=== PATIENT | female | born 1985 | race Caucasian/White ===

== ENCOUNTER 2017-08-23 09:31 | Inpatient (IN) | payer OTHER ==
[2017-08-23 10:04] VITALS: BMI 24.3
--- NOTE | 2017-08-23 10:05 | HP ---
CIWA Score - CIWA Score Nausea/Vomitin-Mild Nausea/No Vomiting Muscle Tremors: 4-Moderate,w/Arms Extend Anxiety: 4-Mod. Anxious/Guarded Agitation: 1-Slight > Activity Paroxysmal Sweats: 1-Minimal Palms Moist Orientation: 1-Uncertain about Date Tacttile Disturbances: 1-Very Mild Itch/Numbness Auditory Disturbances: 2-Mild Harshness/Frighten Visual Disturbances: 1-Very Mild Sensitivity Headache: 2-Mild CIWA-Ar Total Score: 18 Admission ROS BHS - HPI Chief Complaint: I can't stop drinking on my own Allergies/Adverse Reactions: Allergies Allergy/AdvReac Type Severity Reaction Status Date / Time No Known Allergies Allergy Verified 08/23/17 09:59 History of Present Illness: 31 yo woman here for detox from alcohol - history of one previous detox in May with a week of rehab. States she relapsed a few weeks ago - went to [facility] last week but not admitted and then to [facility] yesterday who sent her here for detox. History of seizure in May. 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 Exam Limitations: Clinical Condition - Ebola screening Have you traveled outside of the country in the last 21 days: No Have you had contact with anyone from an Ebola affected area: No Do you have a fever: No - Review of Systems Constitutional: Loss of Appetite, Night Sweats, Changes in sleep EENT: reports: No Symptoms Reported Respiratory: reports: No Symptoms reported Cardiac: reports: No Symptoms Reported GI: reports: Poor Appetite : reports: Frequency Musculoskeletal: reports: Back Pain, Muscle Pain Integumentary: reports: No Symptoms Reported Neuro: reports: Headache, Tremors Endocrine: reports: No Symptoms Reported Hematology: reports: No Symptoms Reported Psychiatric: reports: Judgement Intact, Mood/Affect Appropiate, Anxious Other Systems: Reviewed and Negative Patient History - Patient Medical History Hx Anemia: No Hx Asthma: No Hx Chronic Obstructive Pulmonary Disease (COPD): No Hx Cancer: No Hx Cardiac Disorders: No Hx Congestive Heart Failure: No Hx Hypertension: No Hx Hypercholesterolemia: No Hx Pacemaker: No HX Cerebrovascular Accident: No Hx Seizures: Yes (may 2017) Hx Dementia: No Hx Diabetes: No Hx Gastrointestinal Disorders: No Hx Liver Disease: No Hx Genitourinary Disorders: No Hx Sexually Transmitted Disorders: No Hx Renal Disease (ESRD): No Hx Thyroid Disease: No Hx Human Immunodeficiency Virus (HIV): No Hx Hepatitis C: No Hx Depression: Yes (anxiety) Hx Suicide Attempt: No Hx Bipolar Disorder: No Hx Schizophrenia: No - Patient Surgical History Other Surgical History: tonsillectomy age 3 - PPD History Previous Implant?: Yes Documented Results: Negative w/o proof Implanted On Prior [facility] Admission?: No PPD to be Administered?: Yes - Reproductive History Patient is a Female of Child Bearing Age (11 -55 yrs old): Yes - Smoking Cessation Smoking history: Current every day smoker Have you smoked in the past 12 months: Yes Aproximately how many cigarettes per day: 2 Initiated information on smoking cessation: Yes 'Breaking Loose' booklet given: 08/23/17 (give on floor) - Substance & Tx. History Hx Alcohol Use: Yes Hx Substance Use: No Substance Use Type: Alcohol Hx Substance Use Treatment: Yes (detox may 2017) - Substances Abused Alcohol Route: Oral Frequency: Daily Amount used: 1-2 bottles wine, 3 shots vodka Age of first use: 16 Date of Last Use: 08/22/17 Family Disease History - Family Disease History Family Disease History: Other: Father (living, prostate problem), Mother (living ,[employer], thyroid), Sister (one - healthy) Admission Physical Exam BHS - Vital Signs Vital Signs: Vital Signs Period Temp Pulse Resp BP Sys/Rojas Pulse Ox Last 24 Hr 96 F 87 20 127/73 - Physical General Appearance: Yes: Nourished, Appropriately Dressed, Moderate Distress, Tremorous, Anxious HEENTM: Yes: Hearing grossly Normal, Normal ENT Inspection, Normocephalic, Normal Voice, Pharynx Normal Respiratory: Yes: Normal Breath Sounds, No Respiratory Distress Neck: Yes: No masses,lesions,Nodules, Supple Breast: Yes: Breast Exam Deferred Cardiology: Yes: Regular Rhythm, Regular Rate Abdominal: Yes: Soft Genitourinary: Yes: Frequency Back: Yes: Normal Inspection Musculoskeletal: Yes: full range of Motion, Gait Steady, Back pain Extremities: Yes: Normal Inspection, Normal Range of Motion Neurological: Yes: Alert, Motor Strength 5/5, Normal Mood/Affect, Normal Response Integumentary: Yes: Normal Color, Warm Lymphatic: Yes: Within Normal Limits - Diagnostic (1) Alcohol dependence with uncomplicated withdrawal Current Visit: Yes Status: Chronic (2) History of seizure Current Visit: Yes Status: Chronic (3) Nicotine dependence Current Visit: Yes Status: Chronic Qualifiers: Nicotine product type: cigarettes Substance use status: uncomplicated Qualified Code(s): F17.210 - Nicotine dependence, cigarettes, uncomplicated (4) Low back pain Current Visit: Yes Status: Acute Qualifiers: Chronicity: chronic Back pain laterality: bilateral Sciatica presence: without sciatica Qualified Code(s): M54.5 - Low back pain Cleared for Admission [facility] - Detox or Rehab [facility] Level of Care: Medically Managed Detox Regimen/Protocol: Librium
[2017-08-23] MEDS ORDERED: chlordiazePOXIDE HCL 25 MG CAPSULE PO ONE ×2 (10:17→13:45)
[2017-08-23] MEDS ORDERED: LOPERAMIDE HCL 2 MG CAPSULE PO PRN (10:17)
[2017-08-23] MEDS ORDERED: MENTHOL/PHENOL 1 EACH UD MM PRN (10:17)
[2017-08-23] MEDS ORDERED: ACETAMINOPHEN 325 MG TABLET (FP) PO PRN (10:17)
[2017-08-23] MEDS ORDERED: MAGNESIUM HYDROX 2400MG/30ML ORAL SUSPENSION 30 ML CUP PO PRN (10:17)
[2017-08-23] MEDS ORDERED: guaiFENesin/D-METHORPHAN HB 10 ML UNIT-DOSE CUPS PO PRN (10:17)
[2017-08-23] MEDS ORDERED: P-EPHED 60MG/TRIPROLIDI 2.5MG TABLET PO PRN (10:17)
[2017-08-23] MEDS ORDERED: MAG HYDROX/AL HYDROX/SIMETH 30 ML UNIT-DOSE CUP PO PRN (10:17)
[2017-08-23] MEDS ORDERED: MAGNESIUM CITRATE 300 ML BOTTLE PO PRN (10:17)
[2017-08-23] MEDS ORDERED: NICOTINE POLACRILEX 2 MG GUM BC PRN (10:17)
[2017-08-23] MEDS ORDERED: IBUPROFEN 400 MG TABLET (FP) PO PRN (10:17)
[2017-08-23] MEDS ORDERED: LIDOCAINE 5% TOPICAL PATCH TP PRN (10:18)
[2017-08-23] MEDS: chlordiazePOXIDE HCL 25 MG CAPSULE PO PRN (14:31)
[2017-08-23] MEDS: CYCLOBENZAPRINE HCL 10 MG TABLET (FP) PO PRN ×2 (14:31→22:28)
[2017-08-23] MEDS: hydrOXYzine PAMOATE 50 MG CAPSULE (FP) PO PRN (14:31)
[2017-08-23] MEDS: chlordiazePOXIDE HCL 25 MG CAPSULE PO SCH ×2 (16:51→22:28)
[2017-08-23 17:21] LABS: URINE APPEARANCE CLEAR; URINE BILIRUBIN NEGATIVE (NEGATIVE); URINE BLOOD 1+ (NEGATIVE); URINE COLOR YELLOW; URINE GLUCOSE (UA) NEGATIVE (NEGATIVE); URINE KETONE TRACE (NEGATIVE); URINE LEUK ESTERASE NEGATIVE (NEGATIVE); URINE NITRITE NEGATIVE (NEGATIVE); URINE PROTEIN NEGATIVE (NEGATIVE); URINE UROBILINOGEN NEGATIVE mg/dL (0.2-1.0)
[2017-08-23 17:27] LABS: URINE BACTERIA RARE /hpf (NONE SEEN); URINE MUCUS RARE; URINE RBC <1 /hpf (0-3); URINE WBC 1 /hpf (3-5)
[2017-08-23] MEDS ORDERED: LIDOCAINE PATCH REMOVAL MC PRN (22:00)
[2017-08-23] MEDS: ZOLPIDEM TARTRATE 5 MG TABLET PO PRN (22:28)
[2017-08-23] MEDS: THIAMINE HCL 100 MG TABLET (FP) PO SCH (22:28)
[2017-08-24] MEDS: chlordiazePOXIDE HCL 25 MG CAPSULE PO SCH ×4 (06:20→22:20)
--- NOTE | 2017-08-24 08:46 | EKG ---
Test Reason : Blood Pressure : / mmHG Vent. Rate : 086 BPM Atrial Rate : 086 BPM P-R Int : 124 ms QRS Dur : 082 ms QT Int : 410 ms P-R-T Axes : 060 052 054 degrees QTc Int : 490 ms SINUS RHYTHM WITH PREMATURE ATRIAL COMPLEXES POSSIBLE ANTERIOR INFARCT , AGE UNDETERMINED ABNORMAL ECG NO PREVIOUS ECGS AVAILABLE Confirmed by MD SAMIA, JEREMY ([id number]) on 08/24/2017 8:46:16 AM Referred By: Confirmed By:JEREMY GRACIA MD
[2017-08-24 10:20] LABS: RDW 13.7 % (11.6-15.6)
[2017-08-24 10:22] LABS: MCH 32.1 pg (25.7-33.7); MCHC 33.6 g/dl (32.0-36.0); MEAN CELL VOLUME 95.5 fl (80-96); PLATELET COUNT 253 K/MM3 (134-434); WHITE BLOOD COUNT 4.5 K/mm3 (4.0-10.0)
[2017-08-24] MEDS: PRENATAL VITAMINS W/ FOLIC ACID TABLET (FP) PO SCH (10:28)
[2017-08-24 10:40] LABS: ANION GAP 9 (8-16); BILIRUBIN,TOTAL 0.6 mg/dL (0.2-1.0); CALCIUM 8.9 mg/dL (8.5-10.1); CO2 31 mmol/L (21-32); CREATININE 0.8 mg/dL (0.55-1.02); GLUCOSE,RANDOM 93 mg/dL (74-106); SGOT/AST 59 U/L (15-37); SGPT/ALT 49 U/L (12-78)
[2017-08-24 10:41] LABS: ALK PHOS 46 U/L (45-117)
--- NOTE | 2017-08-24 10:54 | PN ---
[facility] CIWA - CIWA Score Nausea/Vomitin Muscle Tremors: 3 Anxiety: 3 Agitation: 3 Paroxysmal Sweats: 1-Minimal Palms Moist Orientation: 0-Oriented Tacttile Disturbances: 1-Very Mild Itch/Numbness Auditory Disturbances: 1-Very Mild Visual Disturbances: 0-None Headache: 2-Mild CIWA-Ar Total Score: 17 BHS Progress Note (SOAP) Subjective: ALERT,IRRITABLE,ANXIOUS,INTERRUPTED SLEEP,TREMOR Objective: 08/24/17 10:51 Vital Signs Temperature 98.1 F 08/24/17 10:06 Pulse Rate 99 H 08/24/17 10:06 Respiratory Rate 18 08/24/17 10:06 Blood Pressure 113/71 08/24/17 10:06 O2 Sat by Pulse Oximetry (%) EKG NSR NO CHEST PAIN,NO SOB,NO DIZZINESS Laboratory Last Values WBC 4.5 K/mm3 (4.0-10.0) 08/24/17 06:07 RBC 3.96 M/mm3 (3.60-5.2) 08/24/17 06:07 Hgb 12.7 GM/dL (10.7-15.3) 08/24/17 06:07 Hct 37.8 % (32.4-45.2) 08/24/17 06:07 MCV 95.5 fl (80-96) 08/24/17 06:07 MCH 32.1 pg (25.7-33.7) 08/24/17 06:07 MCHC 33.6 g/dl (32.0-36.0) 08/24/17 06:07 RDW 13.7 % (11.6-15.6) 08/24/17 06:07 Plt Count 253 K/MM3 (134-434) 08/24/17 06:07 MPV 8.0 fl (7.5-11.1) 08/24/17 06:07 Sodium 135 mmol/L (136-145) L 08/24/17 06:07 Potassium 3.7 mmol/L (3.5-5.1) 08/24/17 06:07 Chloride 95 mmol/L (98-107) L 08/24/17 06:07 Carbon Dioxide 31 mmol/L (21-32) 08/24/17 06:07 Anion Gap 9 (8-16) 08/24/17 06:07 BUN 17 mg/dL (7-18) 08/24/17 06:07 Creatinine 0.8 mg/dL (0.55-1.02) 08/24/17 06:07 Creat Clearance w eGFR > 60 (>60) 08/24/17 06:07 Random Glucose 93 mg/dL (74-106) 08/24/17 06:07 Calcium 8.9 mg/dL (8.5-10.1) 08/24/17 06:07 Total Bilirubin 0.6 mg/dL (0.2-1.0) 08/24/17 06:07 AST 59 U/L (15-37) H 08/24/17 06:07 ALT 49 U/L (12-78) 08/24/17 06:07 Alkaline Phosphatase 46 U/L (45-117) 08/24/17 06:07 Total Protein 8.0 g/dl (6.4-8.2) 08/24/17 06:07 Albumin 4.0 g/dl (3.4-5.0) 08/24/17 06:07 Urine Color Yellow 08/23/17 15:45 Urine Appearance Clear 08/23/17 15:45 Urine pH 5.0 (5.0-8.0) 08/23/17 15:45 Ur Specific [place] 1.020 (1.005-1.025) 08/23/17 15:45 Urine Protein Negative (NEGATIVE) 08/23/17 15:45 Urine Glucose (UA) Negative (NEGATIVE) 08/23/17 15:45 Urine Ketones Trace (NEGATIVE) H 08/23/17 15:45 Urine Blood 1+ (NEGATIVE) H 08/23/17 15:45 Urine Nitrite Negative (NEGATIVE) 08/23/17 15:45 Urine Bilirubin Negative (NEGATIVE) 08/23/17 15:45 Urine Urobilinogen Negative mg/dL (0.2-1.0) 08/23/17 15:45 Urine RBC <1 /hpf (0-3) 08/23/17 15:45 Urine WBC 1 /hpf (3-5) 08/23/17 15:45 Ur Epithelial Cells Rare /hpf (FEW) 08/23/17 15:45 Urine Bacteria Rare /hpf (NONE SEEN) 08/23/17 15:45 Urine Mucus Rare 08/23/17 15:45 08/24/17 10:53 08/24/17 10:54 Assessment: 08/24/17 10:53 WITHDRAWAL SYMPTOM 08/24/17 10:53 08/24/17 10:54 Plan: CONTINUE DETOX
--- NOTE | 2017-08-24 11:14 | CONSULT ---
[facility] Psychiatric Consult - Data Date of interview: 08/24/17 Admission source: 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 She stared drinking alcohol at age 16, consumes 3 shots of vodka & 1-2 bottles of wine daily. Last drink on 08/22/17 Medical History: Significant for LBP, Alcohol-related seizure and history of Tonsillectomy at age 3. 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 At age 22, she was diagnosed with ADHD and was started on Vyvanse and Adderal. She has had a few psychiatrists over the years and along the psychostimulant and Ambien was tried on several antidepressant medications including Zoloft, Effexor which were mostly ineffective. She has been on Celexa for 8 years with desired effect. For the past month, she has been seeing Dr Shell, a private psychiatrist affiliated with [place] and she is prescribed Celexa 20 mg po daily, Vyvanse 70 mg po daily, Adderal 10 mg po daily(she takes as needed) and Ambien 10 mg po HS. Pharmacy search reveals scripts for all these medications wee filled on 07/15 Physical/Sexual Abuse/Trauma History: Denies history of verbal, physical or sexual abuse as well as DV relationship Additional Comment: No criminal history Mental Status Exam - Mental Status Exam Alert and Oriented to: Time, Place, Person Cognitive Function: Fair Patient Appearance: Well Groomed Mood: Anxious Affect: Appropriate Patient Behavior: Cooperative Speech Pattern: Clear Voice Loudness: Normal Thought Process: Intact Thought Disorder: Not Present Hallucinations: Denies Suicidal Ideation: Denies Homicidal Ideation: Denies Insight/Judgement: Poor Sleep: Poorly Appetite: Good Muscle strength/Tone: Normal Gait/Station: Normal Psychiatric Findings - Problem List ([place] 1, 2,3) (1) ADHD Current Visit: Yes Status: Acute (2) Anxiety disorder Current Visit: Yes Status: Acute (3) Alcohol-induced anxiety disorder Current Visit: Yes Status: Acute (4) Alcohol-induced sleep disorder Current Visit: Yes Status: Acute (5) Alcohol dependence with uncomplicated withdrawal Current Visit: Yes Status: Chronic (6) Nicotine dependence Current Visit: Yes Status: Chronic Qualifiers: Nicotine product type: cigarettes Substance use status: uncomplicated Qualified Code(s): F17.210 - Nicotine dependence, cigarettes, uncomplicated (7) Low back pain Current Visit: Yes Status: Acute Qualifiers: Chronicity: chronic Back pain laterality: bilateral Sciatica presence: without sciatica Qualified Code(s): M54.5 - Low back pain (8) Alcohol related seizure Current Visit: Yes Status: Acute - Initial Treatment Plan Initial Treatment Plan: 1) Continue Celexa 20 mg po daily and Ambien 10 mg po HS prn for insomnia. 2) Continue inpatient detoxification
[2017-08-24] MEDS: CITALOPRAM HYDROBROMIDE 20 MG TABLET (FP) PO SCH (12:57)
[2017-08-24] MEDS: chlordiazePOXIDE HCL 25 MG CAPSULE PO PRN (12:57)
[2017-08-24] MEDS: CYCLOBENZAPRINE HCL 10 MG TABLET (FP) PO PRN ×2 (14:05→22:20)
[2017-08-24] MEDS: hydrOXYzine PAMOATE 50 MG CAPSULE (FP) PO PRN (14:05)
[2017-08-24] MEDS: ZOLPIDEM TARTRATE 5 MG TABLET PO PRN (22:20)
[2017-08-24] MEDS: THIAMINE HCL 100 MG TABLET (FP) PO SCH (22:21)
[2017-08-25] MEDS: diphenhydrAMINE HCL 50 MG CAPSULE PO PRN (01:58)
[2017-08-25] MEDS: chlordiazePOXIDE HCL 25 MG CAPSULE PO PRN ×3 (02:00→19:29)
[2017-08-25] MEDS: chlordiazePOXIDE HCL 25 MG CAPSULE PO SCH ×2 (05:47→10:24)
[2017-08-25] MEDS: PRENATAL VITAMINS W/ FOLIC ACID TABLET (FP) PO SCH (10:24)
[2017-08-25] MEDS: CITALOPRAM HYDROBROMIDE 20 MG TABLET (FP) PO SCH (10:24)
[2017-08-25] MEDS: CYCLOBENZAPRINE HCL 10 MG TABLET (FP) PO PRN ×2 (10:24→19:29)
--- NOTE | 2017-08-25 11:29 | PN ---
[facility] CIWA - CIWA Score Nausea/Vomitin-No Nausea/No Vomiting Muscle Tremors: 4-Moderate,w/Arms Extend Anxiety: 3 Agitation: 3 Paroxysmal Sweats: 3 Orientation: 0-Oriented Tacttile Disturbances: 0-None Auditory Disturbances: 0-None Visual Disturbances: 0-None Headache: 0-None Present CIWA-Ar Total Score: 13 S Progress Note (SOAP) Subjective: agitation sweats shakes interrupted sleep Objective: 08/25/17 11:30 Vital Signs Temperature 97.7 F 08/25/17 10:47 Pulse Rate 89 08/25/17 10:47 Respiratory Rate 18 08/25/17 10:47 Blood Pressure 107/75 08/25/17 10:47 O2 Sat by Pulse Oximetry (%) Laboratory Tests 08/23/17 08/24/17 08/24/17 15:45 06:07 06:07 WBC 4.5 RBC 3.96 Hgb 12.7 Hct 37.8 MCV 95.5 MCH 32.1 MCHC 33.6 RDW 13.7 Plt Count 253 MPV 8.0 Sodium 135 L Potassium 3.7 Chloride 95 L Carbon Dioxide 31 Anion Gap 9 BUN 17 Creatinine 0.8 Creat Clearance w eGFR > 60 Random Glucose 93 Calcium 8.9 Total Bilirubin 0.6 AST 59 H ALT 49 Alkaline Phosphatase 46 Total Protein 8.0 Albumin 4.0 Urine Color Yellow Urine Appearance Clear Urine pH 5.0 Ur Specific [place] 1.020 Urine Protein Negative Urine Glucose (UA) Negative Urine Ketones Trace H Urine Blood 1+ H Urine Nitrite Negative Urine Bilirubin Negative Urine Urobilinogen Negative Urine RBC <1 Urine WBC 1 Ur Epithelial Cells Rare Urine Bacteria Rare Urine Mucus Rare RPR Titer 08/24/17 06:07 WBC RBC Hgb Hct MCV MCH MCHC RDW Plt Count MPV Sodium Potassium Chloride Carbon Dioxide Anion Gap BUN Creatinine Creat Clearance w eGFR Random Glucose Calcium Total Bilirubin AST ALT Alkaline Phosphatase Total Protein Albumin Urine Color Urine Appearance Urine pH Ur Specific [place] Urine Protein Urine Glucose (UA) Urine Ketones Urine Blood Urine Nitrite Urine Bilirubin Urine Urobilinogen Urine RBC Urine WBC Ur Epithelial Cells Urine Bacteria Urine Mucus RPR Titer Nonreactive aaox3 ambulating no acute distress Assessment: 08/25/17 11:30 withdrawal sx Plan: continue detox increase fluids
[2017-08-25] MEDS: hydrOXYzine PAMOATE 50 MG CAPSULE (FP) PO PRN (12:32)
[2017-08-25] MEDS: chlordiazePOXIDE 5 MG CAPSULE PO SCH ×2 (16:31→22:34)
[2017-08-25] MEDS: THIAMINE HCL 100 MG TABLET (FP) PO SCH (22:34)
[2017-08-25] MEDS: ZOLPIDEM TARTRATE 5 MG TABLET PO PRN (22:34)
[2017-08-26] MEDS: chlordiazePOXIDE HCL 25 MG CAPSULE PO PRN (00:27)
[2017-08-26] MEDS: diphenhydrAMINE HCL 50 MG CAPSULE PO PRN (00:27)
[2017-08-26] MEDS ORDERED: hydrOXYzine PAMOATE 50 MG CAPSULE (FP) PO PRN (00:56)
[2017-08-26] MEDS: chlordiazePOXIDE 5 MG CAPSULE PO SCH ×2 (04:49→10:35)
[2017-08-26] MEDS: PRENATAL VITAMINS W/ FOLIC ACID TABLET (FP) PO SCH (10:35)
[2017-08-26] MEDS: CITALOPRAM HYDROBROMIDE 20 MG TABLET (FP) PO SCH (10:35)
--- NOTE | 2017-08-26 11:54 | PN ---
BHS Progress Note (SOAP) Subjective: sweats Objective: 08/26/17 11:54 Vital Signs Temperature 97.5 F L 08/26/17 10:42 Pulse Rate 89 08/26/17 10:42 Respiratory Rate 20 08/26/17 10:42 Blood Pressure 124/77 08/26/17 10:42 O2 Sat by Pulse Oximetry (%) AAOx3 ambulating no acute distress Assessment: 08/26/17 11:54 mild withdrawal sx Plan: continue detox increase fluids d/c in am
[2017-08-26] MEDS: hydrOXYzine PAMOATE 50 MG CAPSULE (FP) PO PRN ×2 (14:28→19:09)
[2017-08-26] MEDS: CYCLOBENZAPRINE HCL 10 MG TABLET (FP) PO PRN ×2 (14:28→22:33)
[2017-08-26] MEDS: chlordiazePOXIDE HCL 10 MG CAPSULE PO SCH ×2 (17:26→22:33)
[2017-08-26] MEDS: ZOLPIDEM TARTRATE 5 MG TABLET PO PRN (22:33)
[2017-08-26] MEDS: THIAMINE HCL 100 MG TABLET (FP) PO SCH (22:33)
[2017-08-27] MEDS: hydrOXYzine PAMOATE 50 MG CAPSULE (FP) PO PRN (01:14)
[2017-08-27] MEDS: diphenhydrAMINE HCL 50 MG CAPSULE PO PRN (02:32)
[2017-08-27] MEDS: chlordiazePOXIDE HCL 10 MG CAPSULE PO SCH (05:58)
[2017-08-27 06:25] VITALS: BP 119/77; PULSE 80; TEMP 98.2
[2017-08-27] MEDS: PRENATAL VITAMINS W/ FOLIC ACID TABLET (FP) PO SCH (09:25)
[2017-08-27] MEDS: CITALOPRAM HYDROBROMIDE 20 MG TABLET (FP) PO SCH (09:25)
--- NOTE | 2017-08-27 09:26 | DS ---
[facility] Detox Discharge Summary Admission Date: 08/23/17 Discharge Date: 08/27/17 - History Present History: Alcohol Dependence - Physical Exam Results Vital Signs: Vital Signs Temperature 98.2 F 08/27/17 06:24 Pulse Rate 80 08/27/17 06:24 Respiratory Rate 16 08/27/17 06:24 Blood Pressure 119/77 08/27/17 06:24 O2 Sat by Pulse Oximetry (%) - Treatment Hospital Course: Detox Protocol Followed, Detoxed Safely, Responded well, Discharged Condition Good, Rehab Referral Accepted - Medication Discharge Medications: Ambulatory Orders Desogestrel-Ethinyl Estradiol [[place]cl[place]en 28 Day Tablet] 1 each PO DAILY Lisdexamfetamine Dimesylate [Vyvanse] 70 mg PO DAILY 08/23/17 Zolpidem Tartrate [Ambien] 10 mg PO HS 08/23/17 - Diagnosis (1) Anxiety disorder Current Visit: Yes Status: Chronic (2) Low back pain Current Visit: Yes Status: Chronic Qualifiers: Chronicity: chronic Back pain laterality: bilateral Sciatica presence: without sciatica Qualified Code(s): M54.5 - Low back pain (3) Alcohol dependence with uncomplicated withdrawal Current Visit: Yes Status: Chronic (4) History of seizure Current Visit: Yes Status: Chronic (5) Nicotine dependence Current Visit: Yes Status: Chronic Qualifiers: Nicotine product type: cigarettes Substance use status: uncomplicated Qualified Code(s): F17.210 - Nicotine dependence, cigarettes, uncomplicated - AMA Did Patient Leave Against Medical Advice: No
== END 2017-08-27 10:00 | disposition home or self-care (01) | DRG 897 ==
LOC: YASAS 09:31 → Y6N 12:13
PROVIDERS: ADMIT Internal Medicine; ATTEND Internal Medicine
PROC: HZ2ZZZZ Detoxification Services for Substance Abuse Treatment (ICD-10-PCS; principal; 2017-08-23)
DX: F10.230 Alcohol dependence with withdrawal, uncomplicated (principal); F10.282 Alcohol dependence with alcohol-induced sleep disorder; F10.24 Alcohol dependence with alcohol-induced mood disorder; F17.210 Nicotine dependence, cigarettes, uncomplicated; F41.9 Anxiety disorder, unspecified; F90.9 Attention-deficit hyperactivity disorder, unspecified type; M54.5 Low back pain; G89.29 Other chronic pain; Z86.69 Personal history of other diseases of the nervous system and sense organs
CPT/HCPCS: 36415; 80053; 81003; 81015; 85027; 86593; 93005; 93010